=== PATIENT | male | born 1970 | race American Indian/Alaskan Native ===

== ENCOUNTER 2022-04-16 19:40 | Emergency (ER) | payer OTHER ==
[2022-04-16 20:14] VITALS: BP 160/88
--- NOTE | 2022-04-16 22:37 | XRay Report ---
Cervical spine, 5 views HISTORY: Neck pain COMPARISON: None FINDINGS: Reversal of normal cervical lordosis. Moderate disc space height loss at C5-C6 and C6-C7. N o evidence of fracture. Odontoid views are intact. Prevertebral soft tissues are within normal limits . IMPRESSION: No acute findings. Signer Name: Sulaiman Jaimes MD Signed: 04/16/2022 10:33 PM Workstation Name: [id number]
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
== END 2022-04-17 01:12 | disposition home or self-care (01) ==
LOC: ED 19:40
DX: S16.1XXA Strain of muscle, fascia and tendon at neck level, initial encounter (principal); M79.18 Myalgia, other site; V89.2XXA Person injured in unspecified motor-vehicle accident, traffic, initial encounter; Y93.89 Activity, other specified; Y92.89 Other specified places as the place of occurrence of the external cause; Y99.8 Other external cause status
CPT/HCPCS: 72040; 99283